=== PATIENT | female | born 1940 | race Caucasian/White ===

== ENCOUNTER 2019-05-07 11:27 | Emergency (ER) | payer MEDICARE, OTHER | END 2019-05-07 12:04 | disposition home or self-care (01) | LOC: NAV ERS 11:27 | DX: M25.571 Pain in right ankle and joints of right foot (principal); Z79.899 Other long term (current) drug therapy; Z79.82 Long term (current) use of aspirin | CPT/HCPCS: 99283 ==

== ENCOUNTER 2019-06-10 10:19 | Emergency (ER) | payer MEDICARE, OTHER ==
[2019-06-10] MEDS ORDERED: Cephalexin 250 MG CAP ONE (10:47)
== END 2019-06-10 10:53 | disposition home or self-care (01) ==
LOC: NAV ERS 10:19
DX: S90.862A Insect bite (nonvenomous), left foot, initial encounter (principal); Z87.891 Personal history of nicotine dependence; Z79.82 Long term (current) use of aspirin; Z79.899 Other long term (current) drug therapy; W57.XXXA Bitten or stung by nonvenomous insect and other nonvenomous arthropods, initial encounter
CPT/HCPCS: 99282

== ENCOUNTER 2019-07-24 16:37 | Emergency (ER) | payer MEDICARE, OTHER ==
[2019-07-24] MEDS ORDERED: Dexamethasone 20 MG/5 ML VIAL ONE (16:52)
== END 2019-07-24 17:15 | disposition home or self-care (01) ==
LOC: NAV ERS 16:37
DX: T63.421A Toxic effect of venom of ants, accidental (unintentional), initial encounter (principal); I10 Essential (primary) hypertension; M79.671 Pain in right foot; Z79.82 Long term (current) use of aspirin; Z79.899 Other long term (current) drug therapy; Z87.891 Personal history of nicotine dependence
CPT/HCPCS: 99282; J1100